=== PATIENT | male | born 1945 | race Caucasian/White ===

== ENCOUNTER 2017-06-16 11:15 | Inpatient (IN) | payer OTHER ==
--- NOTE | 2017-06-16 12:04 | EDPHY ---
H & P Time Seen by Provider: 06/16/17 11:41 HPI/ROS: CHIEF COMPLAINT: Short of breath HISTORY OF PRESENT ILLNESS: 71-year-old man is visiting from [place] with worsening symptoms since last . He has a history of hypertension diabetes and hyperlipidemia. Started getting a cough on and was seen at the emergency department in [place] over the weekend. Presents today with continued cough with a little bit of losing his voice. He is short of breath which is worse lying down with exertion. It is associated with increased abdominal girth and some bilateral pedal edema. No chest pain and no hemoptysis. Symptoms severe today. REVIEW OF SYSTEMS: Eye: no change in vision ENT: no sore throat Cardiac: HPI no syncope Pulmonary: HPI Abdomen: no vomiting, diarrhea, abdominal pain. Increasing girth as above. Musculoskeletal: no back pain Skin: no rash Neuro: no headache Constitutional: no fever : no urinary symptoms A comprehensive 10 point review of systems is otherwise negative aside from elements mentioned in the history of present illness. PAST MEDICAL HISTORY: Includes hypertension diabetes and hyperlipidemia Social history: Visiting from [place] General Appearance: Alert and conversant, cooperative. Eyes: No scleral icterus. ENT, Mouth: Normal mucous membranes. Respiratory: Bibasilar rales, O2 sat 86% on room air. Cardiovascular: Regular rate and rhythm. Gastrointestinal: Abdomen is soft and non tender. Distended, nontender. Neurological: Alert and oriented x3. Normally conversant. Face symmetric, normal movement and sensation in all extremities. Skin: Warm and dry, no rashes. Musculoskeletal: Bilateral 1 to 2+ peripheral edema. Psychiatric: Not agitated. Emergency Department course/MDM: Chest x-ray, BNP and troponin, D-dimer. 1245: Patient's labs reviewed and diagnosis with the family. This includes creatinine 3.4, D-dimer 3.7, right lower lobe pneumonia. Normal saline 1 L IV, lactate screening. Empiric treatment with Lovenox, can't do CTA with creatnine since the possibility of pulmonary embolism is considered. Treated with IV Levaquin 750 mg for probable community-acquired pneumonia. Does not have SIRS criteria or sepsis in the emergency department. 1525: Incidentally noted glucose low, he is now awake, eating. Never symptomatic of hypoglycemia. Smoking Status: Former smoker Constitutional: Initial Vital Signs Temperature (C) 37.0 C 06/16/17 11:27 Heart Rate 76 06/16/17 11:27 Respiratory Rate 18 06/16/17 11:27 Blood Pressure 112/88 H 06/16/17 11:27 O2 Sat (%) 87 L 06/16/17 11:27 O2 Delivery Mode Nasal Cannula O2 (L/minute) 3 Allergies/Adverse Reactions: Penicillins Allergy (Verified 06/16/17 13:20) Rash spironolactone Allergy (Verified 06/16/17 13:20) increase potassium levels Home Medications: Medication Instructions Recorded Allopurinol [Allopurinol 300 MG 300 mg PO DAILY 06/16/17 (RX)] Ascorbic Acid [Vitamin C 500 mg 1,000 mg PO DAILY 06/16/17 (*)] Calcitriol [Calcitriol (*)] 0.25 mcg PO DAILY 06/16/17 Carvedilol [Coreg (*)] 12.5 mg PO DAILY18 06/16/17 Carvedilol [Coreg (*)] 25 mg PO DAILY 06/16/17 Cholecalciferol Vit D3 [Vitamin D3 1,000 units PO Q2D 06/16/17 (*)] Ezetimibe [Zetia 10 MG (*)] 10 mg PO DAILY 06/16/17 Furosemide [Lasix 40 MG (*)] 40 mg PO HS 06/16/17 Furosemide [Lasix 40 MG (*)] 80 mg PO DAILY 06/16/17 Glucosamine Sulfate [Glucosamine 1,000 mg PO DAILY 06/16/17 Sulfate 500 MG (*)] Herbals/Supplements -Info Only 1 ea PO DAILY 06/16/17 Insulin Aspart [novoLOG] 0 unit SC TIDMEAL 06/16/17 Insulin Detemir [Levemir] 50 unit SQ DAILY 06/16/17 Insulin Detemir [Levemir] 80 unit SQ HS 06/16/17 Levothyroxine [Synthroid 112 mcg 112 mcg PO DAILY06 06/16/17 (*)] Liraglutide [Victoza 3-Ryan] 0.6 mg SQ HS 06/16/17 Pravastatin Sodium 40 mg PO DAILY 06/16/17 Pregabalin [Lyrica 75mg (*)] 75 mg PO DAILY 06/16/17 Valsartan [Diovan (*)] 320 mg PO DAILY 06/16/17 guaiFENesin/DEXTROMETHORPHAN 1 each PO Q6HRS 06/16/17 [CORICIDIN HBP SOFTGEL] rOPINIRole HCL [Requip 1mg (*)] 1 mg PO DAILY 06/16/17 Medical Decision Making - Diagnostics EKG Interpretation: 12-lead EKG interpreted by me; official reading is in trace master. My interpretation is sinus rhythm with right bundle branch block and no ischemic changes. Imaging Results: Imaging Impressions Chest X-Ray 06/16/17 12:00 Impression: 1. Right middle lobe and right lower lobe consolidation/pneumonia. Differential Diagnosis: Differential diagnosis considered for shortness of breath including but not limited to pulmonary infectious process, COPD, asthma, pulmonary embolus and congestive heart failure. Critical Care Time: Total critical care time 35 minutes exclusive of separate procedures; including but not limited to supplemental oxygen, IV antibiotics, IV fluids, lovenox, discussion with admitting hospitalist; to attempt to stabilize patient and prevent worsening of condition. Organ systems at risk are pulmonary and renal. - Data Points Laboratory Results: Laboratory Results 06/16/17 11:45 06/16/17 11:45 06/16/17 06/16/17 06/16/17 11:45 11:45 11:45 WBC RBC Hgb Hct MCV MCH MCHC RDW Plt Count MPV Neut % (Auto) Lymph % (Auto) [place] % (Auto) Eos % (Auto) Baso % (Auto) Nucleat RBC Rel Count Absolute Neuts (auto) Absolute Lymphs (auto) Absolute Monos (auto) Absolute Eos (auto) Absolute Basos (auto) Absolute Nucleated RBC Immature Gran % Immature Gran # D-Dimer 3.71 ug/mLFEU H ug/mLFEU (0.00-0.50) Sodium 140 mEq/L mEq/L (134-144) Potassium 3.8 mEq/L mEq/L (3.5-5.2) Chloride 107 mEq/L mEq/L (97-110) Carbon Dioxide 20 mEq/l L mEq/l (22-31) Anion Gap 13 mEq/L mEq/L (8-16) BUN 76 mg/dL H mg/dL (7-23) Creatinine 3.4 mg/dL H mg/dL (0.7-1.3) Estimated GFR 18 Glucose 42 mg/dL L mg/dL (70-100) Calcium 8.6 mg/dL mg/dL (8.5-10.4) Total Bilirubin 0.8 mg/dL mg/dL (0.1-1.4) Conjugated Bilirubin 0.5 mg/dL mg/dL (0.0-0.5) Unconjugated Bilirubin 0.3 mg/dL mg/dL (0.0-1.1) AST 131 IU/L H IU/L (17-59) ALT 80 IU/L H IU/L (21-72) Alkaline Phosphatase 83 IU/L IU/L (38-126) Troponin I 0.138 ng/mL H ng/mL (0.000-0.034) NT-Pro-B Natriuret Pep 1180 pg/mL H pg/mL (0-125) Total Protein 6.2 g/dL L g/dL (6.3-8.2) Albumin 3.4 g/dL L g/dL (3.5-5.0) Procalcitonin 12.39 ng/mL H ng/mL (0.02-0.10) 06/16/17 11:45 WBC 11.06 10^3/uL H 10^3/uL (3.80-9.50) RBC 3.71 10^6/uL L 10^6/uL (4.40-6.38) Hgb 11.6 g/dL L g/dL (13.7-17.5) Hct 34.4 % L % (40.0-51.0) MCV 92.7 fL fL (81.5-99.8) MCH 31.3 pg pg (27.9-34.1) MCHC 33.7 g/dL g/dL (32.4-36.7) RDW 14.6 % % (11.5-15.2) Plt Count 161 10^3/uL 10^3/uL (150-400) MPV 10.4 fL fL (8.7-11.7) Neut % (Auto) 82.7 % H % (39.3-74.2) Lymph % (Auto) 9.3 % L % (15.0-45.0) [place] % (Auto) 6.6 % % (4.5-13.0) Eos % (Auto) 0.1 % L % (0.6-7.6) Baso % (Auto) 0.5 % % (0.3-1.7) Nucleat RBC Rel Count 0.0 % % (0.0-0.2) Absolute Neuts (auto) 9.15 10^3/uL H 10^3/uL (1.70-6.50) Absolute Lymphs (auto) 1.03 10^3/uL 10^3/uL (1.00-3.00) Absolute Monos (auto) 0.73 10^3/uL 10^3/uL (0.30-0.80) Absolute Eos (auto) 0.01 10^3/uL L 10^3/uL (0.03-0.40) Absolute Basos (auto) 0.05 10^3/uL 10^3/uL (0.02-0.10) Absolute Nucleated RBC 0.00 10^3/uL 10^3/uL (0-0.01) Immature Gran % 0.8 % % (0.0-1.1) Immature Gran # 0.09 10^3/uL 10^3/uL (0.00-0.10) D-Dimer Sodium Potassium Chloride Carbon Dioxide Anion Gap BUN Creatinine Estimated GFR Glucose Calcium Total Bilirubin Conjugated Bilirubin Unconjugated Bilirubin AST ALT Alkaline Phosphatase Troponin I NT-Pro-B Natriuret Pep Total Protein Albumin Procalcitonin Microbiology Results: MICROBIOLOGY 06/16/17 12:40 Nasal, Sinus - Swab Respiratory Panel (PCR) - Final No Organism Detected Medications Given: Discontinued Medications Enoxaparin Sodium (Lovenox) 100 mg SC EDNOW ONE Stop: 06/16/17 12:44 Last Admin: 06/16/17 13:42 Dose: 100 mg Sodium Chloride (Ns) 1,000 mls @ 0 mls/hr IV EDNOW ONE; Wide Open PRN Reason: Protocol Stop: 06/16/17 12:44 Last Admin: 06/16/17 12:47 Dose: 1,000 mls Levofloxacin/Dextrose (Levaquin 750 Mg (Premix)) 150 mls @ 100 mls/hr IV EDNOW ONE PRN Reason: Protocol Stop: 06/16/17 14:10 Last Admin: 06/16/17 12:48 Dose: 150 mls Departure - Departure Disposition: [facility] Inpatient Acute Clinical Impression: Pneumonia Qualifiers: Pneumonia type: due to unspecified organism Laterality: right Lung location: lower lobe of lung Qualified Code(s): J18.1 - Lobar pneumonia, unspecified organism Renal failure, acute Qualifiers: Acute renal failure type: unspecified Qualified Code(s): N17.9 - Acute kidney failure, unspecified Condition: Serious
[2017-06-16 12:09] LABS: PLATELET COUNT 161 10^3/uL (150-400)
--- NOTE | 2017-06-16 12:22 | CPEKG ---
Heart Rate: 72 RR Interval: 833 P-R Interval: 200 QRSD Interval: 136 QT Interval: 436 QTC Interval: 478 P [place]: 54 QRS [place]: -18 T Wave [place]: 17 EKG Severity - ABNORMAL ECG - EKG Impression: SINUS RHYTHM EKG Impression: RIGHT BUNDLE BRANCH BLOCK Electronically Signed By: Thiago Alexander 16-Jun-2017 12:57:18
[2017-06-16] MEDS ORDERED: NS 1,000 ML IV ONE (12:43)
[2017-06-16] MEDS ORDERED: ENOXAPARIN 100 MG/ML SYR SC ONE (12:43)
[2017-06-16] MEDS ORDERED: ONDANSETRON 4 MG/2 ML VIAL IVP PRN (12:51)
[2017-06-16] MEDS ORDERED: ONDANSETRON DISINTEGRATING 4 MG TAB PO PRN (12:51)
[2017-06-16] MEDS ORDERED: D50W 25 GM/50 ML SYR IVP PRN (14:03)
--- NOTE | 2017-06-16 14:32 | ECHO ---
[email or web address] [address] [address] Main: [phone] Fax: Transthoracic Echocardiogram Name: IRENA MCMAHON MR#: [id number] Study Date: 06/16/2017 Study Time: 01:26 PM Date of : 1945 Age: 71 year(s) Height: 177.8 cm (70 in.) Weight: 109.32 kg (241 lb.) BSA: 2.26 m2 Gender: Male Examination: Echo Indication: New cough/hypoxia/LE edema/eval for CHF/R heart failure/possible PE Image Quality: Contrast: Requested by: Morenita Workman BP: / Heart Rate: Rhythm: Indication: New cough/hypoxia/LE edema/eval for CHF/R heart failure/possible PE Procedure Staff Share Dairy Farmer: Concetta Wilcox Physician: Evan Cade Requesting Provider: Conclusions: No pericardial effusion. Normal left ventricular systolic function. Ejection fraction 65-70%. Aortic valve calcifications without stenosis. Normal right ventricular systolic pressure. Normal right ventricular size and function. Measurements: Chambers Valvular Assessment AV/MV Valvular Assessment TV/PV Normal Normal Normal Name Value Range Name Value Range Name Value Range Ao Molly (MM): 3.5 cm (2.2 cm-3.7 AV Vmax: 1.79 m/s (1 m/s-1.7 TR Vmax: 2.66 mm/s ( - ) cm) m/s) TR PGmax: 28 mmHg ( - ) IVSd (2D): 0.9 cm (0.6 cm-1.1 AV maxP mmHg ( - ) syst. PAP: 33 mmHg ( - ) cm) AV meanP mmHg ( - ) LVDd (2D): 5.7 cm (4.2 cm-5.9 MV E Vmax: 0.83 m/s ( - ) cm) MV A Vmax: 1.14 m/s ( - ) LVDs (2D): 3.2 cm (2.1 cm-4 MV E/A: 0.73 ( - ) cm) LVPWd (2D): 1.0 cm (0.6 cm-1 cm) LVEF (2D): 74 (>=54 %) EF Range: 65-70 % Continued Measurements: Chambers Valvular Assessment TV/PV Name Value Name Value LADs: 3.1 cm CVP (est.): 5 mmHg LADs Lon.0 cm LA Area: 16.1 cm2 Patient: IRENA MCMAHON Study Date: 06/16/2017 Page 1 of 2 01:26 PM Findings: Left Ventricle: Normal size left ventricle. Normal global systolic LV function. The ejection fraction is estimated to be 65-70 %. No regional wall motion abnormality. Right Ventricle: Normal size right ventricle. Left Atrium: The left atrium is normal in size. Right Atrium: The right atrium is normal in size. Mitral Valve: The mitral valve is normal in appearance and function. Aortic Valve: Moderate aortic cusp calcification is present. AV not well visualized but appears that the NCC of the aortic valve is fixed.. Tricuspid Valve: The tricuspid valve is normal in appearance and function. Trivial tricuspid valve regurgitation. The pulmonary artery pressure is normal. Pulmonic Valve: Pulmonary valve not well visualized. Aorta: The aorta is normal. Pericardium: No pericardial effusion. (No Signature Object) Patient: IRENA MCMAHON Study Date: 06/16/2017 Page 2 of 2 01:26 PM [id number]
--- NOTE | 2017-06-16 15:59 | GHP ---
[f rep st] HISTORY AND PHYSICAL DATE OF ADMISSION: 06/16/2017 CHIEF COMPLAINT: Shortness of breath. PRIMARY BREASTFEEDING PROGRAM COORDINATOR: Dr. Akbar in [place], [place]. FORESTRY CONSULTANT: Dr. Alok Monk in [place], [place]. HISTORY OF PRESENT ILLNESS: A 71-year-old male with history of CKD 4, hypertension, hyperlipidemia, KOLE on CPAP, presenting with shortness of breath and cough. He is here visiting his daughter from [place] and arrived on 06/09. They did fly. Noticed a new cough starting on the that was dry and no sputum production. He has had intermittent chills and sweats that were pretty profound yesterday, per family. He reports subjective fevers. No nausea, vomiting, diarrhea. He was seen in the ER at [facility] on Thursday night. They thought he was constipated, thus gave him MiraLAX. He developed diarrhea on Thursday, but has been having up to 5-6 stools a day since then. He has been wearing Depends because it is so diffuse. He reports increased shortness of breath and wheezing. He has had intermittent dizziness and decreased p.o. intake. Reports substernal chest pressure that is worse with deep breath and cough. Has had shortness of breath with walking that has been new this past year, but worse over the last 3 months. He denies any chest pain, but does not have any stairs and minimal exercise. Over this past weekend, he has noticed increased abdominal swelling, but no pain. No dysuria or increased urinary frequency. Per his report, his blood bank manager, Dr. Akbar, performed a nuclear stress test in April of this year that was negative. REVIEW OF SYSTEMS: I completed a 10-point review of systems, negative except noted in HPI. PAST MEDICAL HISTORY: Osteoarthritis, CKD 4, KOLE on CPAP, hypertension, hyperlipidemia, diabetes, last A1c 7.3, hypothyroidism. PAST SURGICAL HISTORY: None. Did have a recent colonoscopy that was negative. FAMILY HISTORY: Dad with hypertension and of a cardiac arrest. Mother with hypertension. ALLERGIES: Penicillin, spironolactone. MEDICATIONS: Guaifenesin as needed; herbal supplement; glucosamine 1000 mg daily; valsartan 320 mg daily; Victoza 0.6 mg subcu h.s.; vitamin D 1000 units q.2 days; vitamin C 1000 daily; pravastatin 40 mg daily; Zetia 10 daily; Coreg 12.5 at 6:25 in the morning; Lyrica 75 mg daily; levothyroxine 112 mcg p.o. daily; Lasix 80 in the morning, 40 at night; allopurinol 300 mg daily; ropinirole 1 mg daily; Levemir 80 units subcu h.s.; aspart sliding scale; Calcitriol 0.25 mcg daily; Levemir 50 units in the morning. PHYSICAL EXAMINATION: VITAL SIGNS: Temperature 37, blood pressure 112/88, heart rate 70s, respirations 18, 87% on room air, 94% on 3. GENERAL: Ill- appearing, obese male, lying in bed. HEENT: PERRLA. EOMI. Dry mucous membranes. Oropharynx clear. CV: Regular rate and rhythm. No murmurs, gallops, or rubs. LUNGS: Few rhonchi. No wheezing or crackles. ABDOMEN: Obese, mildly distended. Soft. Mild left lower quadrant tenderness. No rebound or guarding. : No Souza. No CVA or suprapubic tenderness. MUSCULOSKELETAL: 5/5 upper and lower extremity strength. NEURO: 2-12 intact. PSYCH: Alert and oriented x3. LABORATORY DATA: WBC 11, hemoglobin 11, hematocrit 34, platelets 161. D-dimer 3.71. Lactate is 1. Sodium 140, potassium 3.8, chloride 107, carbon dioxide 20 , BUN 76, creatinine 3.4, glucose 42, calcium 8.6, total bilirubin 0.8, AST 131 , ALT 80. Troponin 0.138. BNP is 1180. Total protein 6.2, albumin 3.4. Procalcitonin is 12.39. EKG is personally reviewed by me, right bundle branch block. I do not have an old to compare. Chest x-ray is personally reviewed by me. Infiltrates, right middle and lower lobe. Echocardiogram: No effusion, normal LV function. EF is 65% to 70%. Aortic valve calcification without stenosis. Normal right ventricular systolic pressure and function of right ventricle. OSH records: personally reviewed Nephrology notes. Kamini renal U/S 04/07. Creatinine then 2.38 ASSESSMENT AND PLAN: 1. Mild acute hypoxic respiratory failure: differential: infection vs. pulmonary embolism vs acute coronary syndrome. CXR shows PNA. Echo with normal LV/RV function. Will cont IV LQ with PCN-allergy. D-dimer is elevated, but convinced PE with normal TTE. Cannot CT with CKD and large body habitus will make V/Q scan difficult, Was dosed Lovenox in ER. Will hold this and check LE U/ S. Negative resp PCR. 2. Indeterminate troponin: suspect demand with acute illness. Chest pain is reproducible. Right bundle branch block; no old to compare. Obtaining records from his primary blood bank manager in [place]. Per patient, he had a normal nuclear stress test in April. Telemetry and repeat troponin. 3. Elevated BNP: may be secondary to acute illness as he has normal left ventricular function on echocardiogram. 4. Acute on CKD: Creatinine here 3.4. (baseline 2.3 04/07). Normal EF, so will hydrate gently. 5. Hypoglycemia: Glucose 42 at admission. We will repeat now. 6. Obstructive sleep apnea: CPAP 7. Hypertension: Hold antihypertensives with acute illness. 8. Hyperlipidemia: Statin, Zetia. 9. Osteoarthritis: Continue glucosamine, calcium, and vitamin D. 10. Diarrhea: Negative respiratory panel. We will check a GI panel. 11. Hypothyroidism: Synthroid. 12. Diabetes: Recent A1c of 7.3. He is hypoglycemic here, so we will continue only with a sliding scale given decreased p.o. intake. We will add back Lantus when eating more. 13. CAP: renally-dosed Levaquin 13. Deep venous thrombosis prophylaxis: Subcutaneous heparin. 14. Disposition: Patient warrants inpatient admission given acute shortness of breath, pneumonia, warranting antibiotics, serial EKGs and troponin. /[id number]/MODL MTDD
[2017-06-16] MEDS ORDERED: BENZONATATE 100 MG CAP PO PRN (17:08)
[2017-06-16] MEDS ORDERED: ALBUTEROL 60 PUFFS/8 GM MDI IH PRN (17:09)
[2017-06-16] MEDS: LR 1,000 ML IV SCH (17:27)
[2017-06-16] MEDS: CARVEDILOL 6.25 MG TAB PO SCH (17:27)
[2017-06-16] MEDS: INSULIN LISPRO 100 UNIT/ML SC SCH ×2 (17:29→21:56)
[2017-06-16] MEDS: GUAIFENESIN/DM 10 ML UDCUP PO PRN (20:50)
[2017-06-16] MEDS: ACETAMINOPHEN 325 MG TAB PO PRN (20:50)
[2017-06-16] MEDS ORDERED: INSULIN DETEMIR 80 UNIT SQ SCH (21:00)
[2017-06-17] MEDS: LR 1,000 ML IV SCH (02:10)
--- NOTE | 2017-06-17 04:22 | PDMN ---
Medical Necessity Medical necessity: M282 cPNA O2 87% RA, SOB, indeterminate trop., ( 0.138) RBBB seen, pt with mult comorbidities: acute on CKD : Cr 3.4( baseline 2.3) , hypoglycemia, KOLE on CPAP, HTN,DM, further monitoring, tx needed
[2017-06-17] MEDS: LEVOTHYROXINE 112 MCG TAB PO SCH (06:20)
[2017-06-17] MEDS: ACETAMINOPHEN 325 MG TAB PO PRN ×2 (07:15→16:08)
[2017-06-17] MEDS: GUAIFENESIN/DM 10 ML UDCUP PO PRN (07:16)
[2017-06-17] MEDS: GLUCOSAMINE SULF 500 MG CAP PO SCH (08:13)
[2017-06-17] MEDS: EZETIMIBE 10 MG TAB PO SCH (08:13)
[2017-06-17] MEDS: ALLOPURINOL 300 MG TAB PO SCH (08:13)
[2017-06-17] MEDS: PREGABALIN 75 MG CAP PO SCH (08:13)
[2017-06-17] MEDS: ASCORBIC ACID 500 MG TAB PO SCH (08:13)
[2017-06-17] MEDS: CALCITRIOL 0.25 MCG CAP PO SCH (08:13)
[2017-06-17] MEDS: CHOLECALCIFEROL VIT D3 1,000 UNITS TAB PO SCH (08:13)
[2017-06-17] MEDS: PRAVASTATIN SODIUM 40 MG TAB PO SCH (08:13)
[2017-06-17] MEDS ORDERED: ENOXAPARIN 40 MG/0.4 ML SYR SC SCH (09:00)
[2017-06-17] MEDS ORDERED: Herbals/Supplements -Info Only PO SCH (09:00)
[2017-06-17] MEDS ORDERED: NON-FORMULARY NEW DRUG (Insulin Detemir [Levemir] 50 UNIT) SQ SCH (09:00)
[2017-06-17] MEDS: INSULIN LISPRO 100 UNIT/ML SC SCH ×3 (10:32→17:53)
[2017-06-17] MEDS: INSULIN GLARGINE 100 UNITS/ML SYRINGE SC SCH (13:09)
--- NOTE | 2017-06-17 13:13 | HOSPPROG ---
Hospitalist Progress Note Assessment/Plan: #Acute hypoxic resp failure: due to CAP. Negative resp PCR. Dimer elevated, but negative LE U/S and echo. #CAP: renally-dose LQ (PCN-allergy) #Indeterminate trop: suspect demand. He reports normal stress in March. Awaiting records from his Press Brake Operator -TTE normal here #LENORE on CKD: improved with IVFs. Baseline 2.3. Dr. Monk in [place] is airplane refueler. Encourage PO #HTN: holding Diovan. BP okay now #HLD: statin #KOLE: CPAP #Diarrhea: GI PCR negative #DM: restarted insulin at reduced dose with decreased PO. Increase as tolerated #Hypothyroidism: LT4 #Diet: diabetic #DVT ppx: SQH #Deconditioning: cont PT/OT #Disp: warrants inpatient admission with hypoxia, deconditioning. Cont PT, abx and repeat labs Subjective: less SOB today. No chest pain Objective: Vital Signs Temp Pulse Resp BP Pulse Ox 36.7 C 67 21 H 123/68 H 93 06/17/17 11:41 06/17/17 11:41 06/17/17 11:41 06/17/17 11:41 06/17/17 11:41 Microbiology 06/16/17 18:17 Gastrointestinal Tract Panel (PCR) - Final Stool No Organism Detected Laboratory Results 06/17/17 04:39 06/17/17 04:39 06/16/17 06/17/17 06/18/17 05:59 05:59 05:59 Intake Total 3680 Output Total 1650 1100 Balance 2029 - Physical Exam Constitutional: obese Eyes: PERRL Ears, Nose, Mouth, Throat: moist mucous membranes, hearing normal Cardiovascular: regular rate and rhythym, no murmur, rub, or gallop Respiratory: rhonchi Gastrointestinal: normoactive bowel sounds, soft, non-tender abdomen Genitourinary: No small in urethra Skin: warm Musculoskeletal: full muscle strength Neurologic: AAOx3, CN II-XII Intact Psychiatric: interacting appropriately ICD10 Worksheet Patient Problems: Problems Problem Status Onset Pneumonia Acute Renal failure, acute Acute
[2017-06-17] MEDS ORDERED: POTASSIUM CL 20 MEQ TAB PO ONE (13:24)
[2017-06-17] MEDS: guaiFENesin 600 MG TAB.ER PO SCH ×2 (14:53→22:16)
--- NOTE | 2017-06-17 15:03 | ASMTCASEMG ---
Living Arrangements What is your living Answers: With Spouse arrangement? Who do you live with? Type Of Residence What kind of residence do Answers: House you live in? Discharge Plan Comments Coordination Status Comments Notes: Pt is a 71 y/o man admitted for renal failure and PNA. Pt is visiting with his from [place]. PT is recommending HC at this time. CM met w/ pt and for dispo planning.Pt and would like a referral made to [facility]. CM sent referral and instructed [facility] to contact pt and directly to schedule a time for a visit. CM to follow. Plan: HC Date Signed: 06/17/2017 03:03 PM Electronically Signed By:DEEPTI Davis
[2017-06-17] MEDS: CARVEDILOL 6.25 MG TAB PO SCH (17:52)
[2017-06-17] MEDS ORDERED: INSULIN GLARGINE 100 UNITS/ML SYRINGE SC SCH (21:00)
[2017-06-17] MEDS: HEPARIN 5,000 UNIT/0.5 ML SYR SC SCH (22:16)
[2017-06-18] MEDS: LEVOTHYROXINE 112 MCG TAB PO SCH (06:22)
[2017-06-18] MEDS: HEPARIN 5,000 UNIT/0.5 ML SYR SC SCH ×2 (06:22→16:05)
[2017-06-18] MEDS: ACETAMINOPHEN 325 MG TAB PO PRN (06:43)
[2017-06-18] MEDS: GLUCOSAMINE SULF 500 MG CAP PO SCH (08:33)
[2017-06-18] MEDS: INSULIN GLARGINE 100 UNITS/ML SYRINGE SC SCH (08:33)
[2017-06-18] MEDS: ASCORBIC ACID 500 MG TAB PO SCH (08:34)
[2017-06-18] MEDS: INSULIN LISPRO 100 UNIT/ML SC SCH ×2 (08:34→11:57)
[2017-06-18] MEDS: guaiFENesin 600 MG TAB.ER PO SCH (08:34)
[2017-06-18] MEDS: EZETIMIBE 10 MG TAB PO SCH (08:35)
[2017-06-18] MEDS: CHOLECALCIFEROL VIT D3 1,000 UNITS TAB PO SCH (08:35)
[2017-06-18] MEDS: PRAVASTATIN SODIUM 40 MG TAB PO SCH (08:35)
[2017-06-18] MEDS: PREGABALIN 75 MG CAP PO SCH (08:35)
[2017-06-18] MEDS: CALCITRIOL 0.25 MCG CAP PO SCH (08:35)
[2017-06-18] MEDS: ALLOPURINOL 300 MG TAB PO SCH (08:36)
[2017-06-18 11:33] VITALS: TEMP 97.7; O2SAT 94
[2017-06-18 15:15] VITALS: BP 136/63; PULSE 67; RESP 20
--- NOTE | 2017-06-18 15:40 | PDIAF ---
- Diagnosis Diagnosis: pneumonia Code Status: Full Code - Medication Management Discharge Medications: Medications to Continue on Transfer Allopurinol [Allopurinol 300 MG (RX)] 300 mg PO DAILY 06/16/17 [Last Taken 06/16] Ascorbic Acid [Vitamin C 500 mg (*)] 1,000 mg PO DAILY 06/16/17 [Last Taken 3 Days Ago ~06/13/17] Calcitriol [Calcitriol (*)] 0.25 mcg PO DAILY 06/16/17 [Last Taken 06/16/17] Carvedilol [Coreg (*)] 12.5 mg PO DAILY18 06/16/17 [Last Taken 06/15/17] Carvedilol [Coreg (*)] 25 mg PO DAILY 06/16/17 [Last Taken 06/16/17] Cholecalciferol Vit D3 [Vitamin D3 (*)] 1,000 units PO Q2D 06/16/17 [Last Taken 3 Days Ago ~06/13/17] Ezetimibe [Zetia 10 MG (*)] 10 mg PO DAILY 06/16/17 [Last Taken 06/16/17] Furosemide [Lasix 40 MG (*)] 40 mg PO HS 06/16/17 [Last Taken 06/15/17] Furosemide [Lasix 40 MG (*)] 80 mg PO DAILY 06/16/17 [Last Taken 06/16/17] Glucosamine Sulfate [Glucosamine Sulfate 500 MG (*)] 1,000 mg PO DAILY 06/16/17 [Last Taken 3 Days Ago ~06/13/17] Herbals/Supplements -Info Only 1 ea PO DAILY 06/16/17 [Last Taken Unknown] Insulin Aspart [novoLOG] 0 unit SC TIDMEAL 06/16/17 [Last Taken 06/15/17 19:00 14 units] Insulin Detemir [Levemir] 50 unit SQ DAILY 06/16/17 [Last Taken 06/15/17] Insulin Detemir [Levemir] 80 unit SQ HS 06/16/17 [Last Taken 06/15/17] Levothyroxine [Synthroid 112 mcg (*)] 112 mcg PO DAILY06 06/16/17 [Last Taken ] Liraglutide [Victoza 3-Ryan] 0.6 mg SQ HS 06/16/17 [Last Taken 06/15/17] Pravastatin Sodium 40 mg PO DAILY 06/16/17 [Last Taken 06/16/17] Pregabalin [Lyrica 75mg (*)] 75 mg PO DAILY 06/16/17 [Last Taken 06/16/17] Valsartan [Diovan (*)] 320 mg PO DAILY 06/16/17 [Last Taken 06/16/17] guaiFENesin/DEXTROMETHORPHAN [CORICIDIN HBP SOFTGEL] 1 each PO Q6HRS 06/16/17 [ Last Taken 06/15/17 16:00] rOPINIRole HCL [Requip 1mg (*)] 1 mg PO DAILY 06/16/17 [Last Taken 06/16/17] Albuterol [Proventil Inhaler HFA (*)] 2 puffs IH Q4HRS PRN #1 mdi 06/18/17 [ Last Taken Unknown] Benzonatate [Tessalon Pearles] 200 mg PO TID PRN #20 cap 06/18/17 [Last Taken Unknown] guaiFENesin [Mucinex 600 MG (*)] 600 mg PO BID tab.er 06/18/17 [Last Taken Unknown] levOFLOXACIN [levAQUIN (*)] 750 mg PO Q2D@1000 #1 tab 06/18/17 [Last Taken Unknown] Discharge Medications: Refer to the Discharge Home Medication list for PRN reason. - Orders Services needed: Physical Therapy Diet Recommendation: no restrictions on diet Diet Texture: Regular Texture Diet - Follow Up Care Current Providers and Referrals: UNKNOWN,UNKNOWN [Other] - As per Instructions
--- NOTE | 2017-06-18 16:50 | ASDISCHSUM ---
Discharge Information Plan Status:Home with Home Health Medically Cleared to Leave:06/17/2017 Discharge Date:06/18/2017 04:40 PM CM D/C Disposition: ADT D/C Disposition:Home, Routine, Self-Care Projected Discharge Date:06/18/2017 11:00 AM Transportation at D/C: Discharge Delay Reason: Follow-Up Date:06/18/2017 11:00 AM Discharge Slot: Final Diagnosis: Placement Information Referral Type:*Home Health Care Services Referral ID:[id number] Provider Name:[facility] [place] Address 1:[address] [place] [address] Address 2: City:[place] Selection Factors: State:[place] Patient Contact Information Contact Name:RANDY Relationship: Address:[address] City:[place] Alternate Phone: State/Zip Code:[place] [address] Email: Financial Information Financial Class:Medicare Advantage Plans Primary Plan Desc:[employer] CHOICE PPO MEDICARE Primary Plan Number:[id number] Secondary Plan Desc: Secondary Plan Number: Assessment Information [facility] Initial CM Assessment Living Arrangements What is your living Answers: With Spouse arrangement? Who do you live with? Type Of Residence What kind of residence do Answers: House you live in? Discharge Plan Comments Coordination Status Comments Notes: Pt is a 71 y/o man admitted for renal failure and PNA. Pt is visiting with his from [place]. PT is recommending HC at this time. CM met w/ pt and for dispo planning.Pt and would like a referral made to [facility]. CM sent referral and instructed [facility] to contact pt and directly to schedule a time for a visit. CM to follow. Plan: Date Signed: 06/17/2017 03:03 PM Electronically Signed By:DEEPTI Davis Case Management Discharge Plan Note Case Management Discharge Discharge Order Complete? Answers: Yes Patient to Obtain Answers: via Family Medications Transportation Arranged Answers: Family/Friends EMTALA Complete Answers: No Case Management Transport Answers: Yes Form Complete Faxed Final Orders Answers: Yes Agency/Facility Transfer Answers: Yes Report Printed & Faxed to Receiving Agency Family Notified Answers: Yes Discharge Comments Notes: CM spoke w/ LINDSEY Drummond and Dr. Quiroz regarding d/c poc. [facility] is able to accept pt. Ravi from [facility] is associated w/ [facility] and she was able to stop by to meet w/ pt and . D/C orders sent to [facility]. CM available for changes. Plan: [facility]; PT Date Signed: 06/18/2017 03:40 PM Electronically Signed By:DEEPTI Davis Intervention Information Intervention Type:*GLORIA-Signed Date of Service:06/18/2017 12:18 PM Patient Type:Inpatient Staff Member:Karo Stokes Hours: Discipline: Severity: Comment:
--- NOTE | 2017-06-18 17:59 | GDS ---
[f rep st] DISCHARGE SUMMARY DISCHARGE DIAGNOSES: 1. Acute hypoxemic respiratory failure. 2. Community-acquired pneumonia. 3. Acute kidney injury with history of chronic kidney disease. 4. Hypertension. 5. Hyperlipidemia. 6. Obstructive sleep apnea. 7. Diarrhea. 8. Diabetes mellitus. 9. Hypothyroidism. 10. Indeterminate troponin. HOSPITAL COURSE BY PROBLEM: 1. Acute hypoxemic respiratory failure: The patient presented to the hospital where he was started on renally dosed levofloxacin for the presumed diagnosis of pneumonia. His initial chest x-ray did s how a right middle lobe consolidation. An echocardiogram done on the revealed a normal ejection fraction, and no significant pathology. The diagnosis of DVT and PE were entertained. A lower extr emity Doppler was done that was negative for DVT. CT angio of the chest was not done given the patie nt's acute kidney injury in the setting of improved respiratory status with treatment for community-a cquired pneumonia. 2. Acute kidney injury: The patient presented with a creatinine of 3.4, which is down 2.1 on day of discharge. His home dose of diuretics and Diovan were held, but will now be continued. DIAGNOSTICS DONE THIS HOSPITAL STAY: Echocardiogram done 06/16/2017, refer to report. Lower extremi ty Doppler done 06/16/2017, refer to report. Blood cultures no growth. PHYSICAL EXAM: VITAL SIGNS: On day of discharge, blood pressure 124/54, pulse 59, respiratory rate 19, O2 saturation 94% on room air, temperature afebrile. GENERAL: No acute distress. HEART: S1, S 2. LUNGS: Clear. ABDOMEN: Soft. EXTREMITIES: No edema. DISCHARGE MEDICATIONS: Please refer to discharge medication reconciliation in [facility] for details. Below is a preliminary list. New medications: Levofloxacin 750 mg p.o. every other day for 1 more dose. Tessalon Perles 100 mg p. o. 3 times daily p.r.n. cough. Albuterol inhaler 2 puffs q.4 hours p.r.n. wheezing. All other home medications were continued as usual dosages. DISCHARGE INSTRUCTIONS: The patient will be discharged home, where he should follow up with his [facility] care provider next week. At which time he should have repeat laboratory studies done to ensure h is renal function is returning to baseline. He may also benefit from repeat chest x-ray to ensure th e pneumonia has resolved. /[id number]/MODL
== END 2017-06-18 16:40 | disposition home or self-care (01) | DRG 193 ==
LOC: F2W 15:39
PROVIDERS: ADMIT Internal Medicine; ATTEND Internal Medicine
DX: J18.8 Other pneumonia, unspecified organism (principal); J96.01 Acute respiratory failure with hypoxia; N17.9 Acute kidney failure, unspecified; I12.9 Hypertensive chronic kidney disease with stage 1 through stage 4 chronic kidney disease, or unspecified chronic kidney disease; N18.4 Chronic kidney disease, stage 4 (severe); E78.5 Hyperlipidemia, unspecified; G47.33 Obstructive sleep apnea (adult) (pediatric); R19.7 Diarrhea, unspecified; E11.9 Type 2 diabetes mellitus without complications; E03.9 Hypothyroidism, unspecified; Z88.0 Allergy status to penicillin
CPT/HCPCS: 87449-90; 92523-GN; 96374; 97116-GP; 97161-GP; 97166-GO; 97530-GO; 97535-GO; J1650; J1815; J1956